=== PATIENT | female | born 1985 | race Hispanic/Latino ===

== ENCOUNTER 2019-01-04 19:28 | Emergency (ER) | payer BC, SELFPAY ==
[2019-01-04] MEDS ORDERED: TETANUS & DIPHTHERIA TOX,ADULT 0.5 ML VIAL ONE (20:08)
[2019-01-04] MEDS ORDERED: HYDROCODONE/APAP 5/325 MG TAB ONE (20:08)
--- NOTE | 2019-01-04 20:27 | RAD REPORT ---
EXAM DESCRIPTION: RAD - Foot Right 3 View - 01/04/2019 8:17 pm CLINICAL HISTORY: nail in foot Pain and swelling COMPARISON: <Comparisons> FINDINGS: Nail foreign body is seen along the plantar aspect of the hindfoot. Large plantar calcanea l spur seen. No fracture evident.
--- NOTE | 2019-01-04 20:29 | RAD REPORT ---
EXAM DESCRIPTION: RAD - Foot Right 2 View - 01/04/2019 8:18 pm CLINICAL HISTORY: puncture wound COMPARISON: <Comparisons> FINDINGS: The foreign body previously present has been removed. No fracture seen. Large plantar calc aneal spur.
--- NOTE | 2019-01-04 20:32 | ER ---
Nurse's Notes [facility] Name: Nissa Rosado Age: 33 yrs Sex: Female : 1985 Arrival Date: 01/04/2019 Time: 19:30 Bed 13 Private MD: Diagnosis: Puncture wound without foreign body, right foot Presentation: 01/04 19:35 Presenting complaint: Patient states: that she was walking barefoot and stepped on a fc nail. The nail remains intake to right heel. Transition of care: patient was not received from another setting of care. Onset of symptoms was January 04, 2019 at 19:15. Risk Assessment: Do you want to hurt yourself or someone else? Patient reports no desire to harm self or others. Initial Sepsis Screen: Does the patient meet any 2 criteria? No. Patient's initial sepsis screen is negative. Does the patient have a suspected source of infection? No. Patient's initial sepsis screen is negative. Care prior to arrival: None. 19:35 Method Of Arrival: Wheelchair 19:35 Acuity: LOREN 4 Triage Assessment: 19:49 Injury Description: Foreign body is located heel of right foot is Nail. wh STEWARD/STEWARDESS SECOND: 19:35 LMP 12/18/2018 Historical: - Allergies: 19:46 No Known Allergies; fc - Home Meds: 19:46 None [Active]; fc - PMHx: 19:46 None; fc - PSHx: 19:46 Cholecystectomy; fc - Immunization history:: Last tetanus immunization: unknown, Flu vaccine is not up to date. - Social history:: Smoking status: Patient/guardian denies using tobacco, Patient/guardian denies using alcohol, street drugs. - Ebola Screening: : Patient negative for fever greater than or equal to 101.5 degrees Fahrenheit, and additional compatible Ebola Virus Disease symptoms Patient denies exposure to infectious person Patient denies travel to an Ebola-affected area in the 21 days before illness onset. Screenin:35 Abuse screen: Denies threats or abuse. Nutritional screening: No deficits noted. fc Tuberculosis screening: No symptoms or risk factors identified. Fall Risk None identified. Assessment: 19:48 General: Appears in no apparent distress. uncomfortable, Behavior is calm, cooperative, wh appropriate for age. Pain: Complains of pain in heel of right foot Pain does not radiate. Pain currently is 10 out of 10 on a pain scale. Quality of pain is described as aching, Pain began 1 hour ago. Neuro: Level of Consciousness is awake, alert, obeys commands, Oriented to person, place, time, situation, Appropriate for age. Cardiovascular: Capillary refill < 3 seconds. Respiratory: Airway is patent Respiratory effort is even, unlabored, Respiratory pattern is regular, symmetrical. GI: Abdomen is flat, non-distended. : No signs and/or symptoms were reported regarding the genitourinary system. EENT: No signs and/or symptoms were reported regarding the EENT system. Derm: Skin is intact, is healthy with good turgor, Skin is pink, warm \T\ dry. normal. Musculoskeletal: Circulation, motion, and sensation intact. 20:44 Reassessment: Patient appears in no apparent distress at this time. No changes from previously documented assessment. Patient and/or family updated on plan of care and expected duration. Pain level reassessed. Patient is alert, oriented x 3, equal unlabored respirations, skin warm/dry/pink. Foreign body removal done by Beau Fry NP Patient states feeling better. Patient states symptoms have improved. Vital Signs: 19:35 BP 118 / 78; Pulse 74; Resp 18; Temp 98.2(O); Pulse Ox 99% on R/A; Weight 104.33 kg (R); Height 5 ft. 4 in. (162.56 cm) (R); Pain 10/10; 20:44 BP 106 / 61; Pulse 72; Resp 18; Pulse Ox 96% on R/A; wh 19:35 Body Mass Index 39.48 (104.33 kg, 162.56 cm) ED Course: 19:30 Patient arrived in ED. ds1 19:35 Arm band placed on Patient placed in an exam room, on a stretcher. fc 19:35 Patient has correct armband on for positive identification. Bed in low position. Call light in reach. Pulse ox on. NIBP on. 19:43 Beau Fry NP is PHCP. pm1 19:43 Michael Cuenca MD is Attending Physician. pm1 19:44 Triage completed. 19:47 Tran Storm is Primary Nurse. wh 20:17 Foot Right 3 View XRAY In Process Unspecified. EDMS 20:18 Foot Right 2 View XRAY In Process Unspecified. EDMS 20:25 Assist provider with foreign body removal of NAil from right Heel of foot using Pliers Set up for procedure. Performed by Beau Fry DATASTAGE ARCHITECT Dressed with BAnd Aid Patient tolerated well. Patient did not have IV access during this emergency room visit. Administered Medications: 20:23 Drug: Tetanus-Diphtheria Toxoid Adult 0.5 ml {Hot Dipper: [employer]. Exp: 08/04/2020. Lot #: [id number]. } Route: IM; Site: right deltoid; 20:43 Follow up: Response: No adverse reaction 20:23 Drug: [place] 5 mg-325 mg 1 tabs {Note: RASS 0.} Route: PO; 20:43 Follow up: Response: No adverse reaction; Pain is decreased; RASS: Alert and Calm (0) Outcome: 20:31 Discharge ordered by MD. pm1 20:46 Discharged to home ambulatory, with family. 20:46 Condition: stable 20:46 Discharge instructions given to patient, family, Instructed on discharge instructions, follow up and referral plans. medication usage, wound care, Demonstrated understanding of instructions, follow-up care, medications, wound care, Prescriptions given X 2. 20:47 Patient left the ED. Signatures: Dispatcher [employer] Nanda Diez RN RN Aaliyah Marie 1 Beau Fry, DATASTAGE ARCHITECT DATASTAGE ARCHITECT pm1 Tran Storm Corrections: (The following items were deleted from the chart) 20:46 19:35 No provider procedures requiring assistance completed. [facility]
--- NOTE | 2019-01-04 20:32 | EDPHYS ---
Physician Documentation [facility] Name: Nissa Rosado Age: 33 yrs Sex: Female : 1985 Arrival Date: 01/04/2019 Time: 19:30 Bed 13 Private MD: ED Physician Michael Cuenca HPI: 01/04 19:53 This 33 yrs old Female presents to ER via Wheelchair with complaints of Foot pm1 Injury. 19:53 The patient presents with a puncture wound, from a nail. The complaints affect the pm1 right foot. Context: The problem was sustained at home, resulted from stepped on nail with barefoot, Problem is a result from a previous injury: No. Onset: The symptoms/episode began/occurred just prior to arrival. Associated signs and symptoms: The patient has no apparent associated signs or symptoms. Treatment prior to arrival includes: no previous treatment. The patient has not experienced similar symptoms in the past. Walking barefoot outside her house and stepped on nail. INVISIBLE BRACES ORTHODONTIST: 19:35 LMP 12/18/2018 fc Historical: - Allergies: 19:46 No Known Allergies; fc - Home Meds: 19:46 None [Active]; fc - PMHx: 19:46 None; fc - PSHx: 19:46 Cholecystectomy; fc - Immunization history:: Last tetanus immunization: unknown, Flu vaccine is not up to date. - Social history:: Smoking status: Patient/guardian denies using tobacco, Patient/guardian denies using alcohol, street drugs. - Ebola Screening: : Patient negative for fever greater than or equal to 101.5 degrees Fahrenheit, and additional compatible Ebola Virus Disease symptoms Patient denies exposure to infectious person Patient denies travel to an Ebola-affected area in the 21 days before illness onset. ROS: 19:53 Constitutional: Negative for fever, chills, and weight loss, Cardiovascular: Negative pm1 for chest pain, palpitations, and edema, Respiratory: Negative for shortness of breath, cough, wheezing, and pleuritic chest pain, Back: Negative for injury and pain. 19:53 MS/extremity: Positive for puncture, of the right foot, Negative for decreased range of motion, deformity. 19:53 Skin: Positive for puncture, of the right foot. 19:53 All other systems are negative. Exam: 19:53 Constitutional: This is a well developed, well nourished patient who is awake, alert, pm1 and in no acute distress. Head/Face: Normocephalic, atraumatic. Cardiovascular: Regular rate and rhythm with a normal S1 and S2. No gallops, murmurs, or rubs. No pulse deficits. Respiratory: Lungs have equal breath sounds bilaterally, clear to auscultation and percussion. No rales, rhonchi or wheezes noted. No increased work of breathing, no retractions or nasal flaring. Back: No spinal tenderness. No costovertebral tenderness. Full range of motion. 19:53 Skin: Appearance: normal except for affected area, injury, puncture(s), that are superficial, of the heel of right foot. Vital Signs: 19:35 BP 118 / 78; Pulse 74; Resp 18; Temp 98.2(O); Pulse Ox 99% on R/A; Weight 104.33 kg fc (R); Height 5 ft. 4 in. (162.56 cm) (R); Pain 10/10; 20:44 BP 106 / 61; Pulse 72; Resp 18; Pulse Ox 96% on R/A; wh 19:35 Body Mass Index 39.48 (104.33 kg, 162.56 cm) fc Procedures: 20:35 Foreign Body Removal: a nail, from the right heel of right foot, by using a hemostat, pm1 The patient tolerated the removal well. MDM: 19:50 Patient medically screened. pm1 20:31 Data reviewed: vital signs. Data interpreted: Pulse oximetry: on room air is 99 %. pm1 Interpretation: normal. Counseling: I had a detailed discussion with the patient and/or guardian regarding: the historical points, exam findings, and any diagnostic results supporting the discharge/admit diagnosis, radiology results, the need for outpatient follow up, to return to the emergency department if symptoms worsen or persist or if there are any questions or concerns that arise at home. 20:31 Special discussion: I discussed in detail with the patient the higher chance of wound pm1 infection based on his presenting history. 01/04 19:43 Order name: Foot Right 3 View XRAY; Complete Time: 20:38 fc 01/04 19:58 Order name: Foot Right 2 View XRAY; Complete Time: 20:38 pm1 Administered Medications: 20:23 Drug: Tetanus-Diphtheria Toxoid Adult 0.5 ml {Public Welfare Worker: [employer]. Exp: 08/04/2020. Lot #: [id number]. } Route: IM; Site: right deltoid; 20:43 Follow up: Response: No adverse reaction 20:23 Drug: [place] 5 mg-325 mg 1 tabs {Note: RASS 0.} Route: PO; 20:43 Follow up: Response: No adverse reaction; Pain is decreased; RASS: Alert and Calm (0) Disposition: 01/04/19 20:31 Discharged to Home. Impression: Puncture wound without foreign body, right foot. - Condition is Stable. - Discharge Instructions: Puncture Wound. - Prescriptions for Cipro 500 mg Oral Tablet - take 1 tablet by ORAL route every 12 hours for 10 days; 20 tablet. Bactrim DS 800- 160 mg Oral Tablet - take 1 tablet by ORAL route every 12 hours for 10 days; 20 tablet. - Medication Reconciliation Form, Thank You Letter, Antibiotic Education, Prescription Opioid Use form. - Follow up: Emergency Department; When: As needed; Reason: Worsening of condition. Follow up: Private Physician; When: 2 - 3 days; Reason: Recheck today's complaints, Continuance of care, Re-evaluation by your physician. - Problem is new. - Symptoms have improved. Addendum: 01/07/2019 08:08 Co-signature as Attending Physician, Michael Cuenca MD I agree with the assessment and c merrill plan of care. Signatures: Dispatcher [employer] Michael Esteban MD MD cha Chretien, Felicia, RN RN Beau Thompson CIRCULATION TENDER CIRCULATION TENDER pm1 Tran Storm Corrections: (The following items were deleted from the chart) 01/04 20:47 20:31 01/04/2019 20:31 Discharged to Home. Impression: Puncture wound without foreign wh body, right foot. Condition is Stable. Forms are Medication Reconciliation Form, Thank You Letter, Antibiotic Education, Prescription Opioid Use. Follow up: Emergency Department; When: As needed; Reason: Worsening of condition. Follow up: Private Physician; When: 2 - 3 days; Reason: Recheck today's complaints, Continuance of care, Re-evaluation by your physician. Problem is new. Symptoms have improved. pm1
[2019-01-04 21:04] VITALS: TEMP 98.2
[2019-01-04 21:05] VITALS: BP 106/61; O2SAT 96
== END 2019-01-04 20:47 | disposition home or self-care (01) ==
LOC: ER 19:28
DX: S91.331A Puncture wound without foreign body, right foot, initial encounter (principal); W45.0XXA Nail entering through skin, initial encounter; Y93.9 Activity, unspecified; Y92.9 Unspecified place or not applicable; Z23 Encounter for immunization
CPT/HCPCS: 90471; 90714; 99284